=== PATIENT | female | born 1970 | race Caucasian/White ===

== ENCOUNTER 2018-04-05 12:27 | Inpatient (IN) | payer OTHER ==
[2018-04-05 12:49] VITALS: BMI 28.5
--- NOTE | 2018-04-05 15:07 | HP ---
CIWA Score - CIWA Score Nausea/Vomitin Muscle Tremors: 3 Anxiety: 3 Agitation: 3 Paroxysmal Sweats: 3 Orientation: 0-Oriented Tacttile Disturbances: 1-Very Mild Itch/Numbness Auditory Disturbances: 1-Very Mild Visual Disturbances: 0-None Headache: 2-Mild CIWA-Ar Total Score: 19 Admission ROS BHS - HPI Chief Complaint: i need help to stop drinking alcohol Allergies/Adverse Reactions: Allergies Allergy/AdvReac Type Severity Reaction Status Date / Time No Known Allergies Allergy Verified 04/05/18 15:00 History of Present Illness: this 47 years female with alcohol dependence,seeking detox,withdrawal symptom, last detox [facility] in 2012 syncope alcohol related,last 04/04/18 seen in [facility] 04/04/18 give ativan at [facility] anxiety,depression longest period of sobriety 5 years - Ebola screening Have you traveled outside of the country in the last 21 days: No Have you had contact with anyone from an Ebola affected area: No Have you been sick,other than usual withdrawal symptoms: No Do you have a fever: No - Review of Systems Constitutional: Loss of Appetite, Malaise, Night Sweats, Changes in sleep, Weakness EENT: reports: Nose Congestion Respiratory: reports: No Symptoms reported Cardiac: reports: Palpitations GI: reports: Diarrhea, Nausea, Vomiting, Abdominal cramping : reports: No Symptoms Reported Musculoskeletal: reports: Back Pain, Muscle Pain Integumentary: reports: Dryness Neuro: reports: Headache, Tremors Endocrine: reports: No Symptoms Reported Hematology: reports: No Symptoms Reported Psychiatric: reports: No Sypmtoms Reported, Judgement Intact, Mood/Affect Appropiate, Orientated x3, Anxious, Depressed Patient History - Patient Medical History Hx Anemia: No Hx Asthma: No Hx Chronic Obstructive Pulmonary Disease (COPD): No Hx Cancer: No Hx Cardiac Disorders: No Hx Congestive Heart Failure: No Hx Hypertension: No Hx Hypercholesterolemia: No Hx Pacemaker: No HX Cerebrovascular Accident: No Hx Seizures: No Hx Dementia: No Hx Diabetes: No Hx Gastrointestinal Disorders: No Hx Liver Disease: No Hx Genitourinary Disorders: No Hx Sexually Transmitted Disorders: No Hx Renal Disease (ESRD): No Hx Thyroid Disease: No Hx Human Immunodeficiency Virus (HIV): No (last 2016 negative) Hx Hepatitis C: No Hx Depression: Yes (anxiety,insomnia) Hx Suicide Attempt: No Hx Bipolar Disorder: No Hx Schizophrenia: No Other Medical History: no sucidal,no homicidal - Patient Surgical History Past Surgical History: No - PPD History Previous Implant?: Yes Documented Results: Negative w/o proof Implanted On Prior [facility] Admission?: No PPD to be Administered?: Yes - Reproductive History Patient is a Female of Child Bearing Age (11 -55 yrs old): Yes Last Menstrual Period: 03/14/18 Patient : No - Smoking Cessation Smoking history: Never smoked - Substance & Tx. History Hx Alcohol Use: Yes Hx Substance Use: No Substance Use Type: Alcohol Hx Substance Use Treatment: Yes ([facility] in [place] [facility] last 2012) Family Disease History - Family Disease History Family Disease History: [place]: Father (leukemia ), Other: Father, Mother ( lupus ) Admission Physical Exam [facility] - Vital Signs Vital Signs: Vital Signs - 24 hr 04/05/18 12:45 Temperature 96.2 F L Pulse Rate 108 H Respiratory 20 Rate Blood Pressure 140/98 - Physical General Appearance: Yes: Moderate Distress, Tremorous, Irritable, Sweating, Anxious HEENTM: Yes: Normal ENT Inspection, MARY, Pharynx Normal Respiratory: Yes: Lungs Clear, Normal Breath Sounds, No Respiratory Distress Neck: Yes: Within Normal Limits, Supple, Trachea in good position Breast: Yes: Breast Exam Deferred Cardiology: Yes: Within Normal Limits, Regular Rhythm, Regular Rate, S1, S2 Abdominal: Yes: Within Normal Limits, Normal Bowel Sounds, Non Tender, Flat, Soft Genitourinary: Yes: Within Normal Limits Back: Yes: Muscle Spasm Musculoskeletal: Yes: full range of Motion, Back pain, Muscle Pain Extremities: Yes: Within Normal Limits, Normal Range of Motion, Tremors Neurological: Yes: trimmer loader II-XII NML intact, Alert, Motor Strength 5/5, Normal Mood /Affect, Normal Response Integumentary: Yes: Dry Lymphatic: Yes: Within Normal Limits - Diagnostic (1) Alcohol dependence with uncomplicated withdrawal Current Visit: Yes Status: Acute (2) Syncope Current Visit: Yes Status: Acute (3) Insomnia secondary to depression with anxiety Current Visit: Yes Status: Acute Cleared for Admission [facility] - Detox or Rehab [facility] Level of Care: Medically Managed Detox Regimen/Protocol: Librium S Breath Alcohol Content Breath Alcohol Content: 0 Urine Pregancy Test - Result Urine Test Results: Negative- NO Line Present Urine Drug Screen - Results Drug Screen Negative: No Urine Drug Screen Results: BZO-Benzodiazepines
[2018-04-05] MEDS ORDERED: P-EPHED 60MG/TRIPROLIDI 2.5MG TABLET PO PRN (15:19)
[2018-04-05] MEDS ORDERED: MAGNESIUM HYDROX 2400MG/30ML ORAL SUSPENSION 30 ML CUP PO PRN (15:19)
[2018-04-05] MEDS ORDERED: MAG HYDROX/AL HYDROX/SIMETH 30 ML UNIT-DOSE CUP PO PRN (15:19)
[2018-04-05] MEDS ORDERED: MAGNESIUM CITRATE 300 ML BOTTLE PO PRN (15:19)
[2018-04-05] MEDS ORDERED: chlordiazePOXIDE HCL 25 MG CAPSULE PO PRN (15:19)
[2018-04-05] MEDS: chlordiazePOXIDE HCL 25 MG CAPSULE PO SCH ×2 (16:41→22:04)
[2018-04-05] MEDS: THIAMINE HCL 100 MG TABLET (FP) PO SCH (22:03)
[2018-04-05] MEDS: MELATONIN 5 MG TABLETS PO PRN (22:04)
[2018-04-05] MEDS: guaiFENesin/D-METHORPHAN HB 10 ML UNIT-DOSE CUPS PO PRN (22:04)
[2018-04-05] MEDS: MENTHOL/PHENOL 1 EACH UD MM PRN (22:06)
[2018-04-06] MEDS: MENTHOL/PHENOL 1 EACH UD MM PRN ×4 (02:22→22:07)
[2018-04-06] MEDS: guaiFENesin/D-METHORPHAN HB 10 ML UNIT-DOSE CUPS PO PRN ×3 (03:17→17:32)
[2018-04-06] MEDS: chlordiazePOXIDE HCL 25 MG CAPSULE PO SCH ×4 (05:25→22:05)
--- NOTE | 2018-04-06 07:40 | CONSULT ---
[facility] Psychiatric Consult - Data Date of interview: 04/06/18 Admission source: [facility] Identifying data: This is 47 years old female, , unemployed, living with roommate, on PA, with psychiatric hospitalization history, with alcohol dependence, reports withdrawal symptoms, and seeking for detox. Substance Abuse History: - Smoking Cessation. Smoking history: Never smoked. - Substance & Tx. History. Hx Alcohol Use: Yes. Hx Substance Use: No. Substance Use Type: Alcohol. Hx Substance Use Treatment: Yes ([facility] in [place] last 2012) Medical History: Syncope history Psychiatric History: Patient reports history of deopression with unclear recent psychiatric admission to [facility] for safety for few days, denies suicida, nomicidal history, refusing to restart Lexapro 20mg poqd, as per computer was taking Lexapro 20mg poqd prior to admission. Physical/Sexual Abuse/Trauma History: Denies Additional Comment: Observation. Detox Unit Care Protocol Mental Status Exam - Mental Status Exam Alert and Oriented to: Person Cognitive Function: Fair Patient Appearance: Unkempt Mood: Sad Affect: Flat Patient Behavior: Sedated Speech Pattern: Delayed Voice Loudness: Mildly Soft/Quiet Thought Process: Circumstantial Thought Disorder: Being Controlled Hallucinations: Denies Suicidal Ideation: Denies Homicidal Ideation: Denies Insight/Judgement: Fair Sleep: Difficulty falling asleep Appetite: Weight loss Muscle strength/Tone: Mild Hypotonicity Gait/Station: Shuffling Additional Comments: Observation. Detox Unit Care Protocol Psychiatric Findings - Problem List ([place] 1, 2,3) (1) Alcohol-induced mood disorder Current Visit: Yes Status: Acute (2) Alcohol induced insomnia Current Visit: Yes Status: Acute (3) Alcohol dependence with uncomplicated withdrawal Current Visit: Yes Status: Acute - Initial Treatment Plan Initial Treatment Plan: Observation. Detox Unit Care Protocol
--- NOTE | 2018-04-06 09:27 | PN ---
BHS CIWA - CIWA Score Nausea/Vomitin-Mild Nausea/No Vomiting Muscle Tremors: 4-Moderate,w/Arms Extend Anxiety: 4-Mod. Anxious/Guarded Agitation: 4-Moderately Restless Paroxysmal Sweats: 1-Minimal Palms Moist Orientation: 0-Oriented Tacttile Disturbances: 1-Very Mild Itch/Numbness Auditory Disturbances: 0-None Visual Disturbances: 0-None Headache: 1-Very Mild CIWA-Ar Total Score: 16 BHS Progress Note (SOAP) Subjective: sweat tremor restlessness anxiety trouble sleep at night diarrhea gid distress Objective: 04/06/18 09:25 Vital Signs Temperature 98.1 F 04/06/18 09:19 Pulse Rate 79 04/06/18 09:19 Respiratory Rate 18 04/06/18 09:19 Blood Pressure 135/87 04/06/18 09:19 O2 Sat by Pulse Oximetry (%) lab not available at this time Assessment: 04/06/18 09:26 withdrawal sx Plan: continue detox
[2018-04-06 09:46] LABS: HEMATOCRIT 36.8 % (32.4-45.2); HEMOGLOBIN 12.6 GM/dL (10.7-15.3); MCH 30.4 pg (25.7-33.7); MCHC 34.2 g/dl (32.0-36.0); MEAN CELL VOLUME 89.1 fl (80-96); MEAN PLT VOLUME 7.4 fl (7.5-11.1); PLATELET COUNT 159 K/MM3 (134-434); RBC 4.13 M/mm3 (3.60-5.2); RDW 14.2 % (11.6-15.6); WHITE BLOOD COUNT 4.3 K/mm3 (4.0-10.0)
[2018-04-06 10:01] LABS: CHLORIDE 100 mmol/L (98-107); POTASSIUM 3.4 mmol/L (3.5-5.1); SODIUM 138 mmol/L (136-145)
[2018-04-06] MEDS: PRENATAL VITAMINS W/ FOLIC ACID TABLET (FP) PO SCH (10:05)
[2018-04-06] MEDS: LOPERAMIDE HCL 2 MG CAPSULE PO PRN ×2 (10:06→17:32)
[2018-04-06 10:23] LABS: ALBUMIN 3.2 g/dl (3.4-5.0); ALK PHOS 119 U/L (45-117); ANION GAP 10 (8-16); BILIRUBIN,TOTAL 0.5 mg/dL (0.2-1.0); BLOOD UREA NITROGEN 6 mg/dL (7-18); CALCIUM 8.4 mg/dL (8.5-10.1); CO2 28 mmol/L (21-32); CREATININE 0.8 mg/dL (0.55-1.02); GLUCOSE,RANDOM 99 mg/dL (74-106); SGOT/AST 45 U/L (15-37); SGPT/ALT 26 U/L (12-78); TOT PROT 7.1 g/dl (6.4-8.2)
--- NOTE | 2018-04-06 12:47 | EKG ---
Test Reason : Blood Pressure : / mmHG Vent. Rate : 086 BPM Atrial Rate : 087 BPM P-R Int : 000 ms QRS Dur : 080 ms QT Int : 396 ms P-R-T Axes : 000 -06 009 degrees QTc Int : 473 ms POOR DATA QUALITY, INTERPRETATION MAY BE ADVERSELY AFFECTED probably NSR motion artifacts ABNORMAL ECG NO PREVIOUS ECGS AVAILABLE Confirmed by JESSE HUBBARD, PANCHITO ([id number]) on 04/06/2018 12:47:21 PM Referred By: Confirmed By:PANCHITO MOLINA MD
[2018-04-06] MEDS: POTASSIUM CHLORIDE TABS 20 MEQ TABLET.ER (FP) PO SCH (15:35)
[2018-04-06] MEDS: ACETAMINOPHEN 325 MG TABLET (FP) PO PRN (19:12)
[2018-04-06] MEDS: THIAMINE HCL 100 MG TABLET (FP) PO SCH (22:05)
[2018-04-06] MEDS: MELATONIN 5 MG TABLETS PO PRN (22:06)
[2018-04-07] MEDS: LOPERAMIDE HCL 2 MG CAPSULE PO PRN (01:28)
[2018-04-07] MEDS: guaiFENesin/D-METHORPHAN HB 10 ML UNIT-DOSE CUPS PO PRN (01:28)
[2018-04-07] MEDS: MENTHOL/PHENOL 1 EACH UD MM PRN ×2 (01:29→06:06)
[2018-04-07] MEDS: chlordiazePOXIDE HCL 25 MG CAPSULE PO SCH ×2 (06:00→10:40)
--- NOTE | 2018-04-07 10:27 | PN ---
S CIWA - CIWA Score Nausea/Vomitin-Mild Nausea/No Vomiting Muscle Tremors: 4-Moderate,w/Arms Extend Anxiety: 3 Agitation: 3 Paroxysmal Sweats: 1-Minimal Palms Moist Orientation: 0-Oriented Tacttile Disturbances: 0-None Auditory Disturbances: 0-None Visual Disturbances: 0-None Headache: 0-None Present CIWA-Ar Total Score: 12 BHS Progress Note (SOAP) Subjective: SWEAT TREMOR TROUBLE SLEEP AT NIGHT GI DISTRESS ANXIETY RESTLESSNESS Objective: 04/07/18 10:35 Vital Signs Temperature 98 F 04/07/18 10:22 Pulse Rate 79 04/07/18 10:22 Respiratory Rate 18 04/07/18 10:22 Blood Pressure 118/69 04/07/18 10:22 O2 Sat by Pulse Oximetry (%) Laboratory Last Values WBC 4.3 K/mm3 (4.0-10.0) 04/06/18 07:00 RBC 4.13 M/mm3 (3.60-5.2) 04/06/18 07:00 Hgb 12.6 GM/dL (10.7-15.3) 04/06/18 07:00 Hct 36.8 % (32.4-45.2) 04/06/18 07:00 MCV 89.1 fl (80-96) 04/06/18 07:00 MCH 30.4 pg (25.7-33.7) 04/06/18 07:00 MCHC 34.2 g/dl (32.0-36.0) 04/06/18 07:00 RDW 14.2 % (11.6-15.6) 04/06/18 07:00 Plt Count 159 K/MM3 (134-434) 04/06/18 07:00 MPV 7.4 fl (7.5-11.1) L 04/06/18 07:00 Sodium 138 mmol/L (136-145) 04/06/18 07:00 Potassium 3.4 mmol/L (3.5-5.1) L 04/06/18 07:00 Chloride 100 mmol/L (98-107) 04/06/18 07:00 Carbon Dioxide 28 mmol/L (21-32) 04/06/18 07:00 Anion Gap 10 (8-16) 04/06/18 07:00 BUN 6 mg/dL (7-18) L 04/06/18 07:00 Creatinine 0.8 mg/dL (0.55-1.02) 04/06/18 07:00 Creat Clearance w eGFR > 60 (>60) 04/06/18 07:00 Random Glucose 99 mg/dL (74-106) 04/06/18 07:00 Calcium 8.4 mg/dL (8.5-10.1) L 04/06/18 07:00 Total Bilirubin 0.5 mg/dL (0.2-1.0) 04/06/18 07:00 AST 45 U/L (15-37) H 04/06/18 07:00 ALT 26 U/L (12-78) 04/06/18 07:00 Alkaline Phosphatase 119 U/L (45-117) H 04/06/18 07:00 Total Protein 7.1 g/dl (6.4-8.2) 04/06/18 07:00 Albumin 3.2 g/dl (3.4-5.0) L 04/06/18 07:00 RPR Titer Nonreactive (NONREACTIVE) 04/06/18 07:00 HIV 1&2 Antibody Screen Negative 04/06/18 07:00 HIV P24 Antigen Negative 04/06/18 07:00 LAB NOTED CONTINUE k+ REPEAT k+ 04/08/18 04/07/18 10:35 Assessment: 04/07/18 10:36 WITHDRAWAL SX Plan: CONTINUE DETOX
[2018-04-07] MEDS: POTASSIUM CHLORIDE TABS 20 MEQ TABLET.ER (FP) PO SCH (10:39)
[2018-04-07] MEDS: PRENATAL VITAMINS W/ FOLIC ACID TABLET (FP) PO SCH (10:39)
[2018-04-07] MEDS: guaiFENesin 600 MG TABLET.ER (FP) PO SCH ×2 (11:58→22:26)
--- NOTE | 2018-04-07 14:27 | EKG ---
Test Reason : Blood Pressure : / mmHG Vent. Rate : 090 BPM Atrial Rate : 090 BPM P-R Int : 128 ms QRS Dur : 084 ms QT Int : 360 ms P-R-T Axes : 000 009 023 degrees QTc Int : 440 ms NORMAL SINUS RHYTHM NORMAL ECG WHEN COMPARED WITH ECG OF 05-APR-2018 16:29, SINUS RHYTHM HAS REPLACED JUNCTIONAL RHYTHM Confirmed by BILLY MURRELL MD ([id number]) on 04/07/2018 2:27:19 PM Referred By: Confirmed By:BILLY MURRELL MD
[2018-04-07] MEDS: chlordiazePOXIDE 5 MG CAPSULE PO SCH ×2 (17:14→22:27)
[2018-04-07] MEDS: THIAMINE HCL 100 MG TABLET (FP) PO SCH (22:27)
[2018-04-08] MEDS: hydrOXYzine PAMOATE 50 MG CAPSULE (FP) PO PRN ×3 (04:32→14:58)
[2018-04-08] MEDS: chlordiazePOXIDE 5 MG CAPSULE PO SCH ×2 (05:11→10:41)
[2018-04-08] MEDS: POTASSIUM CHLORIDE TABS 20 MEQ TABLET.ER (FP) PO SCH (10:40)
[2018-04-08] MEDS: PRENATAL VITAMINS W/ FOLIC ACID TABLET (FP) PO SCH (10:40)
[2018-04-08] MEDS: guaiFENesin 600 MG TABLET.ER (FP) PO SCH ×2 (10:40→22:19)
[2018-04-08] MEDS: IBUPROFEN 400 MG TABLET (FP) PO PRN (13:40)
--- NOTE | 2018-04-08 15:40 | PN ---
BHS Progress Note (SOAP) Subjective: pt states expected to go home tomorrow-and to rehab on Wednesday in 3 days, but does not want to go home tomorrow- afraid that she will start drinking alcohold again- wants to stay for 2 more days- Objective: 04/08/18 15:38 Vital Signs - 8 hr 04/08/18 14:00 Temperature 97.3 F L Pulse Rate 112 H Respiratory 16 Rate Blood Pressure 108/79 CBC, BMP 04/06/18 07:00 04/08/18 07:00 pt walking around nl VS and grossly nl PE Assessment: 04/08/18 15:39 ass/plan: continue alcohol detox- d/w counselor/nurse to see if insurance will pay for pt to stay for 2 more days-
[2018-04-08] MEDS: chlordiazePOXIDE HCL 10 MG CAPSULE PO SCH ×2 (16:47→22:19)
[2018-04-08] MEDS: ACETAMINOPHEN 325 MG TABLET (FP) PO PRN (18:27)
[2018-04-08] MEDS: MELATONIN 5 MG TABLETS PO PRN (22:19)
[2018-04-08] MEDS: THIAMINE HCL 100 MG TABLET (FP) PO SCH (22:19)
[2018-04-09] MEDS: IBUPROFEN 400 MG TABLET (FP) PO PRN (02:07)
[2018-04-09] MEDS: hydrOXYzine PAMOATE 50 MG CAPSULE (FP) PO PRN (02:07)
[2018-04-09] MEDS: chlordiazePOXIDE HCL 10 MG CAPSULE PO SCH ×2 (05:45→10:03)
--- NOTE | 2018-04-09 09:46 | PN ---
S Progress Note (SOAP) Subjective: alert,no complaint Objective: 04/09/18 09:44 Vital Signs Temperature 97.2 F L 04/09/18 07:41 Pulse Rate 75 04/09/18 07:41 Respiratory Rate 20 04/09/18 07:41 Blood Pressure 107/63 04/09/18 07:41 O2 Sat by Pulse Oximetry (%) Assessment: 04/09/18 09:44 detox completed,no withdrawal symptom Plan: discharge today,follow up with after care program as arrangement
--- NOTE | 2018-04-09 09:49 | DS ---
[facility] Detox Discharge Summary Admission Date: 04/05/18 Discharge Date: 04/09/18 - History Present History: Alcohol Dependence Additional Comments: follow up with after care program as arrangement Pertinent Past History: insomnia - Physical Exam Results Vital Signs: Vital Signs Temperature 97.2 F L 04/09/18 07:41 Pulse Rate 75 04/09/18 07:41 Respiratory Rate 20 04/09/18 07:41 Blood Pressure 107/63 04/09/18 07:41 O2 Sat by Pulse Oximetry (%) Pertinent Admission Physical Exam Findings: withdrawal signs and symptom Vital Signs Temperature 97.2 F L 04/09/18 07:41 Pulse Rate 75 04/09/18 07:41 Respiratory Rate 20 04/09/18 07:41 Blood Pressure 107/63 04/09/18 07:41 O2 Sat by Pulse Oximetry (%) 04/08/18 07:00 Potassium 4.0 Laboratory Last Values WBC 4.3 K/mm3 (4.0-10.0) 04/06/18 07:00 RBC 4.13 M/mm3 (3.60-5.2) 04/06/18 07:00 Hgb 12.6 GM/dL (10.7-15.3) 04/06/18 07:00 Hct 36.8 % (32.4-45.2) 04/06/18 07:00 MCV 89.1 fl (80-96) 04/06/18 07:00 MCH 30.4 pg (25.7-33.7) 04/06/18 07:00 MCHC 34.2 g/dl (32.0-36.0) 04/06/18 07:00 RDW 14.2 % (11.6-15.6) 04/06/18 07:00 Plt Count 159 K/MM3 (134-434) 04/06/18 07:00 MPV 7.4 fl (7.5-11.1) L 04/06/18 07:00 Sodium 138 mmol/L (136-145) 04/06/18 07:00 Potassium 4.0 mmol/L (3.5-5.1) 04/08/18 07:00 Chloride 100 mmol/L (98-107) 04/06/18 07:00 Carbon Dioxide 28 mmol/L (21-32) 04/06/18 07:00 Anion Gap 10 (8-16) 04/06/18 07:00 BUN 6 mg/dL (7-18) L 04/06/18 07:00 Creatinine 0.8 mg/dL (0.55-1.02) 04/06/18 07:00 Creat Clearance w eGFR > 60 (>60) 04/06/18 07:00 Random Glucose 99 mg/dL (74-106) 04/06/18 07:00 Calcium 8.4 mg/dL (8.5-10.1) L 04/06/18 07:00 Total Bilirubin 0.5 mg/dL (0.2-1.0) 04/06/18 07:00 AST 45 U/L (15-37) H 04/06/18 07:00 ALT 26 U/L (12-78) 04/06/18 07:00 Alkaline Phosphatase 119 U/L (45-117) H 04/06/18 07:00 Total Protein 7.1 g/dl (6.4-8.2) 04/06/18 07:00 Albumin 3.2 g/dl (3.4-5.0) L 04/06/18 07:00 RPR Titer Nonreactive (NONREACTIVE) 04/06/18 07:00 HIV 1&2 Antibody Screen Negative 04/06/18 07:00 HIV P24 Antigen Negative 04/06/18 07:00 - Treatment Hospital Course: Detox Protocol Followed, Detoxed Safely, Responded well, Discharged Condition Good Patient has Accepted a Rehab Referral to: declined - Medication Discharge Medications: Ambulatory Orders Escitalopram Oxalate [Lexapro -] 10 mg PO DAILY 04/05/18 - Diagnosis (1) Alcohol dependence with uncomplicated withdrawal Current Visit: Yes Status: Acute (2) Syncope Current Visit: Yes Status: Acute (3) Insomnia secondary to depression with anxiety Current Visit: Yes Status: Acute - AMA Did Patient Leave Against Medical Advice: No
[2018-04-09] MEDS: POTASSIUM CHLORIDE TABS 20 MEQ TABLET.ER (FP) PO SCH (09:51)
[2018-04-09] MEDS: guaiFENesin 600 MG TABLET.ER (FP) PO SCH (09:51)
[2018-04-09] MEDS: PRENATAL VITAMINS W/ FOLIC ACID TABLET (FP) PO SCH (09:51)
--- NOTE | 2018-04-09 10:18 | PN ---
SOPHIES Progress Note Note: patient will go to [facility] for follow up care treatment
[2018-04-09 11:42] VITALS: BP 124/76; PULSE 84; TEMP 96.3
== END 2018-04-09 12:31 | disposition other institution (70) | DRG 775 ==
LOC: YASAS 12:27 → Y6N 15:33
PROVIDERS: ADMIT Surgery; ATTEND Surgery
PROC: HZ2ZZZZ Detoxification Services for Substance Abuse Treatment (ICD-10-PCS; principal; 2018-04-05)
DX: F10.230 Alcohol dependence with withdrawal, uncomplicated (principal); F51.05 Insomnia due to other mental disorder; F10.24 Alcohol dependence with alcohol-induced mood disorder; F10.282 Alcohol dependence with alcohol-induced sleep disorder; R55 Syncope and collapse
CPT/HCPCS: 36415; 80053; 84132; 85027; 86593; 87389; 93005; 93010